=== PATIENT | female | born 1960 | race Caucasian/White ===

== ENCOUNTER 2021-12-12 15:01 | Emergency (ER) | payer OTHER, BC ==
[2021-12-12 15:51] VITALS: BP 129/66; PULSE 86; RESP 18; TEMP 97.5; BMI 29.1
[2021-12-12] MEDS ORDERED: ACETAMINOPHEN 500 MG TABLET (FP) PO ONE (16:19)
[2021-12-12] MEDS ORDERED: IBUPROFEN 600 MG TABLET (FP) PO ONE ×2 (16:19→16:53)
[2021-12-12] MEDS ORDERED: metFORMIN HCL 500 MG TABLET (FP) PO ONE (16:19)
[2021-12-12] MEDS ORDERED: CYCLOBENZAPRINE HCL 10 MG TABLET (FP) PO ONE (16:19)
[2021-12-12] MEDS ORDERED: metFORMIN HCL 500 MG TABLET (FP) ONE (16:51)
[2021-12-12] MEDS ORDERED: CYCLOBENZAPRINE HCL 10 MG TABLET (FP) ONE (16:52)
[2021-12-12] MEDS ORDERED: ACETAMINOPHEN 500 MG TABLET (FP) ONE (16:53)
== END 2021-12-12 17:43 | disposition home or self-care (01) ==
LOC: JERFT 15:01 → JER 15:01 → JERFT 17:43
DX: M25.511 Pain in right shoulder (principal); M79.601 Pain in right arm; V49.50XA Passenger injured in collision with unspecified motor vehicles in traffic accident, initial encounter
CPT/HCPCS: 70450-TC; 71046-TC-FY; 99284-25